=== PATIENT | female | born 1950 | race Caucasian/White ===

== ENCOUNTER → 2017-06-26 | Outpatient (CLI) | payer MEDICARE, OTHER ==
[~2017-06-26] MED LIST: ALBUAER3 IN; AMLO5TAB2 PO; ASP81EC PO; ATOR20TA50 PO; FEXO-38 PO; FLUT1INH6 IN; FURO20TA PO; LEVO-28 PO; LEVO500T21 PO; MONT10TA34 PO; POTA10IN PO; PRE1T PO; SACC250C PO; UMEC1INH IN
[2017-06-26 08:58] LABS: CONDITION Y; DEFINITIVE SEE PRINTOUT; Hematocrit 38.2 % (36.0-46.0); Hemoglobin 12.9 g/dL (12.2-16.2); Mean Corpuscular Hemoglobin 29.9 pg (28.0-32.0); Mean Corpuscular Hgb Conc. 33.6 g/dL (32.0-36.0); Mean Platelet Volume 7.7 fL (7.4-10.4); Platelet Count (auto) 462 10^3/uL (140-450); Red Cell Distribution Width 14.9 % (11.6-16.0); SUSPECT SEE PRINTOUT
[2017-06-26 09:03] LABS: Urine Bilirubin Negative (Negative); Urine Blood 1+ /uL (Negative); Urine Color Yellow (Yellow); Urine Glucose Normal (Normal); Urine Ketone Negative (Negative); Urine Mucus FEW (None Seen); Urine Nitrite Negative (Negative); Urine RBC 4 /hpf (0 - 4); Urine Squamous Epithelial Cell FEW /hpf (<5)
[2017-06-26 09:07] LABS: Metamyelocytes % 0; Myelocytes % 0; Promyelocytes % 0; Reactive Lymphocytes 0
[2017-06-26 09:38] LABS: BUN/Creatinine Ratio 23.3; Bilirubin, Total 0.7 mg/dL (0.2-1.0); Total Protein 7.6 g/dL (6.4-8.2)
[2017-06-26 14:43] LABS: Platelet Estimate Increased
== END | disposition home or self-care (01) ==
LOC: LAB 08:30
PROVIDERS: ATTEND Internal Medicine
DX: J44.9 Chronic obstructive pulmonary disease, unspecified (principal); J30.2 Other seasonal allergic rhinitis
CPT/HCPCS: 36415; 80053; 80061; 81001; 84439; 84443; 85007; 85027; 85652; 86141

== ENCOUNTER 2017-07-02 19:01 | Emergency (ER) | payer MEDICARE, OTHER ==
[~2017-07-02] VITALS: Ht 152.4 cm; Wt 68.5 kg
[2017-07-02 19:56] LABS: Basophils # (auto) 0 uL; Basophils % (auto) 0.1 % (0.0-2.0); Eosinophils # (auto) 3.7 uL; Hematocrit 36.9 % (36.0-46.0); Hemoglobin 12.5 g/dL (12.2-16.2); Lymphocytes # (auto) 1.6 uL; Lymphocytes % (auto) 7.8 % (10.0-50.0); Mean Corpuscular Hemoglobin 29.4 pg (28.0-32.0); Mean Corpuscular Hgb Conc. 33.9 g/dL (32.0-36.0); Mean Corpuscular Volume 86.8 fL (80.0-100.0); Monocytes # (auto) 0.3 uL; Monocytes % (auto) 1.7 % (0.0-12.0); Neutrophils # (auto) 14.3 uL; Neutrophils % (auto) 71.6 % (37.0-80.0); Platelet Count (auto) 559 10^3/uL (140-450); Red Cell Distribution Width 15.3 % (11.6-16.0); White Blood Cell 19.9 10^3/uL (4.4-10.8)
[2017-07-02 20:21] LABS: Albumin 2.9 g/dL (3.4-5.0); Anion Gap 15 (5-15); Aspartate Aminotransferase 34 U/L (15-37); BUN/Creatinine Ratio 20.8; Blood Urea Nitrogen 15 mg/dL (7-18); Calcium 8.5 mg/dL (8.5-10.1); Carbon Dioxide 19 mmol/L (21-32); Chloride 103 mmol/L (98-107); GFR African American 104 mL/min; GFR Non-African American 86 mL/min; Glucose 148 mg/dL (74-106); Magnesium 2.3 mg/dL (1.6-2.6); Potassium 3.4 mmol/L (3.5-5.1); Sodium 137 mmol/L (136-145)
[2017-07-02 20:24] LABS: Eosinophils % (auto) 18.8 % (0.0-7.0)
[2017-07-02 20:27] LABS: Alkaline Phosphatase 206 U/L (45-117); Bilirubin, Total 0.9 mg/dL (0.2-1.0); Total Protein 8.3 g/dL (6.4-8.2)
[2017-07-02 21:06] LABS: B-Type Natriuretic Peptide 44.4 pg/mL (0-100)
[2017-07-02 21:15] LABS: Temperature: 22.3 C (20.0-25.0)
[2017-07-02 21:25] LABS: Urine Bilirubin Negative (Negative); Urine Blood 1+ /uL (Negative); Urine Color Yellow (Yellow); Urine Glucose Normal (Normal); Urine Ketone 4+ (Negative); Urine Mucus FEW (None Seen); Urine Nitrite Negative (Negative); Urine RBC 4 /hpf (0 - 4); Urine Squamous Epithelial Cell FEW /hpf (<5); Urine Urobilinogen Normal (Negative); Urine pH 5.5 (5.0-8.0)
[2017-07-02 21:31] LABS: Lactic Acid w/Reflex 2.2 mmol/L (0.4-2.0)
[2017-07-02 22:07] LABS: REFLEX LACTIC ACID YES OR NO YES
[2017-07-02] MEDS ORDERED: SODIUM CHLORIDE 0.9% 1,000 ML IV ONE (22:15)
[2017-07-02] MEDS ORDERED: cefTRIAXone 1GM/50ML D5W 50 ML IV ONE (23:00)
[2017-07-03 01:00] VITALS: BP 143/71
[2017-07-06] MEDS ORDERED: LEVO-28 PO (16:09)
[2017-07-06] MEDS ORDERED: PRE1T PO (16:09)
[2017-07-06] MEDS ORDERED: AMLO5TAB2 PO (16:12)
[2017-07-06] MEDS ORDERED: FEXO-38 PO (16:12)
[2017-07-06] MEDS ORDERED: MONT10TA34 PO (16:12)
[2017-07-06] MEDS ORDERED: FURO20TA PO (16:12)
[2017-07-06] MEDS ORDERED: POTA10IN PO (16:12)
[2017-07-06] MEDS ORDERED: FLUT1INH6 IN (23:46)
[2017-07-06] MEDS ORDERED: ALBUAER3 IN (23:46)
[2017-07-06] MEDS ORDERED: UMEC1INH IN (23:46)
[2017-07-09] MEDS ORDERED: LEVO500T21 PO (15:07)
[2017-07-09] MEDS ORDERED: ASP81EC PO (15:07)
[2017-07-09] MEDS ORDERED: SACC250C PO (15:07)
[2017-07-09] MEDS ORDERED: ATOR20TA50 PO (15:07)
== END 2017-07-03 01:57 | disposition home or self-care (01) ==
LOC: ER 19:01
DX: J01.90 Acute sinusitis, unspecified (principal); D72.829 Elevated white blood cell count, unspecified; J44.9 Chronic obstructive pulmonary disease, unspecified; I10 Essential (primary) hypertension
CPT/HCPCS: 36415; 70450; 71020; 80053; 81001; 83605; 83735; 83880; 84484; 85025; 87040; 93005; 96361; 96365; 99285; J0696; J7030

== ENCOUNTER → 2017-07-02 | Outpatient (CLI) | payer MEDICARE, OTHER ==
[2017-07-02 13:18] LABS: CONDITION Y; DEFINITIVE SEE PRINTOUT; Hematocrit 39.9 % (36.0-46.0); Hemoglobin 13.2 g/dL (12.2-16.2); Mean Corpuscular Hemoglobin 29.6 pg (28.0-32.0); Mean Corpuscular Hgb Conc. 33.2 g/dL (32.0-36.0); Mean Corpuscular Volume 89.4 fL (80.0-100.0); Mean Platelet Volume 7.2 fL (7.4-10.4); Platelet Count (auto) 682 10^3/uL (140-450); Red Cell Distribution Width 15.6 % (11.6-16.0); SUSPECT SEE PRINTOUT; White Blood Cell 29.4 10^3/uL (4.4-10.8)
[2017-07-02 13:24] LABS: Metamyelocytes % 0; Myelocytes % 0; Promyelocytes % 0; Reactive Lymphocytes 0
[2017-07-02 13:45] LABS: Platelet Estimate Increased
[2017-07-02 14:40] LABS: Potassium 3.5 mmol/L (3.5-5.1)
== END | disposition home or self-care (01) ==
LOC: LAB 12:56
PROVIDERS: ATTEND Internal Medicine
DX: J32.9 Chronic sinusitis, unspecified (principal); I11.0 Hypertensive heart disease with heart failure; I50.9 Heart failure, unspecified
CPT/HCPCS: 36415; 84132; 85007; 85027; 86141

== ENCOUNTER → 2017-07-16 | Outpatient (CLI) | payer MEDICARE, OTHER ==
[2017-07-16 11:27] LABS: Hemoglobin 12.4 g/dL (12.2-16.2); Mean Corpuscular Hemoglobin 29.6 pg (28.0-32.0); Mean Corpuscular Hgb Conc. 33.5 g/dL (32.0-36.0); Mean Corpuscular Volume 88.2 fL (80.0-100.0); Mean Platelet Volume 7.3 fL (6.9-10.8); Platelet Count (auto) 578 10^3/uL (140-450); Red Cell Distribution Width 16.3 % (11.8-14.3); White Blood Cell 25.8 10^3/uL (4.4-10.8)
[2017-07-16 11:35] LABS: Metamyelocytes % 0; Myelocytes % 0; Promyelocytes % 0; Reactive Lymphocytes 0
[2017-07-16 12:53] LABS: Platelet Estimate Increased
== END | disposition home or self-care (01) ==
LOC: LAB 09:16
PROVIDERS: ATTEND Internal Medicine
DX: D72.829 Elevated white blood cell count, unspecified (principal)
CPT/HCPCS: 36415; 85007; 85027

== ENCOUNTER → 2017-08-26 | Outpatient (CLI) | payer MEDICARE, OTHER ==
[~2017-08-26] MED LIST changes: -LEVO500T21 PO
[2017-08-26 09:31] LABS: Basophils # (auto) 0 uL; Basophils % (auto) 0.1 % (0.0-2.0); Eosinophils # (auto) 0.7 uL; Eosinophils % (auto) 3.7 % (0.0-7.0); Hematocrit 32.9 % (36.0-46.0); Hemoglobin 10.7 g/dL (12.2-16.2); Lymphocytes # (auto) 1.7 uL; Lymphocytes % (auto) 9.5 % (10.0-50.0); Mean Corpuscular Hemoglobin 29.2 pg (28.0-32.0); Mean Corpuscular Hgb Conc. 32.5 g/dL (32.0-36.0); Mean Corpuscular Volume 89.7 fL (80.0-100.0); Mean Platelet Volume 7.6 fL (6.9-10.8); Monocytes # (auto) 0.8 uL; Monocytes % (auto) 4.3 % (0.0-12.0); Neutrophils % (auto) 82.4 % (37.0-80.0); Platelet Count (auto) 409 10^3/uL (140-450); Red Cell Distribution Width 18.6 % (11.8-14.3); White Blood Cell 18.1 10^3/uL (4.4-10.8)
[2017-08-26 10:00] LABS: Albumin 2.7 g/dL (3.4-5.0); Bilirubin, Total 0.4 mg/dL (0.2-1.0); Calcium 8.4 mg/dL (8.5-10.1); Potassium 3.4 mmol/L (3.5-5.1); Total Protein 6.6 g/dL (6.4-8.2)
== END | disposition home or self-care (01) ==
LOC: LAB 08:34
DX: I10 Essential (primary) hypertension (principal); M06.9 Rheumatoid arthritis, unspecified; D64.9 Anemia, unspecified; J44.9 Chronic obstructive pulmonary disease, unspecified
CPT/HCPCS: 36415; 80053; 85025; 85652; 86141; 86256

== ENCOUNTER → 2017-10-09 | Outpatient (CLI) | payer MEDICARE, OTHER ==
[2017-10-09 11:11] LABS: Basophils # (auto) 0.1 uL; Basophils % (auto) 0.4 % (0.0-2.0); Eosinophils # (auto) 1.5 uL; Eosinophils % (auto) 8.3 % (0.0-7.0); Hematocrit 33.1 % (36.0-46.0); Hemoglobin 10.7 g/dL (12.2-16.2); Lymphocytes # (auto) 1.8 uL; Lymphocytes % (auto) 10.1 % (10.0-50.0); Mean Corpuscular Hemoglobin 28.8 pg (28.0-32.0); Mean Corpuscular Hgb Conc. 32.5 g/dL (32.0-36.0); Mean Corpuscular Volume 88.7 fL (80.0-100.0); Mean Platelet Volume 7.2 fL (6.9-10.8); Monocytes # (auto) 0.8 uL; Monocytes % (auto) 4.4 % (0.0-12.0); Neutrophils # (auto) 13.9 uL; Neutrophils % (auto) 76.8 % (37.0-80.0); Nucleated Red Blood Cells % 0.2 %; Platelet Count (auto) 457 10^3/uL (140-450); Red Cell Distribution Width 17.6 % (11.8-14.3); White Blood Cell 18.1 10^3/uL (4.4-10.8)
[2017-10-09 12:05] LABS: Albumin 2.6 g/dL (3.4-5.0); Bilirubin, Total 0.7 mg/dL (0.2-1.0); Calcium 9.2 mg/dL (8.5-10.1); Potassium 3.9 mmol/L (3.5-5.1); Total Protein 6.7 g/dL (6.4-8.2)
== END | disposition home or self-care (01) ==
LOC: LAB 10:53
DX: I10 Essential (primary) hypertension (principal); M06.9 Rheumatoid arthritis, unspecified; I70.0 Atherosclerosis of aorta; E78.00 Pure hypercholesterolemia, unspecified; D64.9 Anemia, unspecified; Z79.899 Other long term (current) drug therapy
CPT/HCPCS: 36415; 80053; 85025; 85652; 86141

== ENCOUNTER → 2017-11-11 | Outpatient (CLI) | payer MEDICARE, OTHER ==
[2017-11-11 11:28] LABS: Basophils # (auto) 0 uL; Eosinophils # (auto) 0.3 uL; Hemoglobin 10.1 g/dL (12.2-16.2); Lymphocytes # (auto) 1.2 uL; Monocytes # (auto) 0.8 uL; Monocytes % (auto) 6.3 % (0.0-12.0)
[2017-11-11 11:31] LABS: Basophils % (auto) 0.2 % (0.0-2.0); Eosinophils % (auto) 2.2 % (0.0-7.0); Hematocrit 31.1 % (36.0-46.0); Lymphocytes % (auto) 9.6 % (10.0-50.0); Mean Corpuscular Hemoglobin 28.3 pg (28.0-32.0); Mean Corpuscular Hgb Conc. 32.7 g/dL (32.0-36.0); Mean Corpuscular Volume 86.6 fL (80.0-100.0); Neutrophils # (auto) 10.5 uL; Neutrophils % (auto) 81.7 % (37.0-80.0); Platelet Count (auto) 677 10^3/uL (140-450); Red Blood Cells 3.59 10^6/uL (4.0-5.20); Red Cell Distribution Width 16.5 % (11.8-14.3); White Blood Cell 12.9 10^3/uL (4.4-10.8)
[2017-11-11 11:47] LABS: Albumin 3.1 g/dL (3.4-5.0); BUN/Creatinine Ratio 18.3; Bilirubin, Total 0.3 mg/dL (0.2-1.0); CRP High Sensitivity 9.83 mg/dL (< 0.3); Magnesium 2.3 mg/dL (1.6-2.6); Potassium 4.1 mmol/L (3.5-5.1); Total Protein 7.3 g/dL (6.4-8.2)
== END | disposition home or self-care (01) ==
LOC: LAB 10:47
PROVIDERS: ATTEND Internal Medicine
DX: I10 Essential (primary) hypertension (principal); I77.6 Arteritis, unspecified; J44.9 Chronic obstructive pulmonary disease, unspecified; Z80.8 Family history of malignant neoplasm of other organs or systems; Z82.49 Family history of ischemic heart disease and other diseases of the circulatory system; Z79.899 Other long term (current) drug therapy
CPT/HCPCS: 36415; 80053; 83735; 83880; 85025; 85652; 86141

== ENCOUNTER → 2018-01-18 | Outpatient (CLI) | payer MEDICARE, OTHER ==
[2018-01-18 12:25] LABS: Basophils # (auto) 0 uL; Basophils % (auto) 0.1 % (0.0-2.0); Eosinophils # (auto) 0.3 uL; Eosinophils % (auto) 2.9 % (0.0-7.0); Hematocrit 36.7 % (36.0-46.0); Hemoglobin 11.6 g/dL (12.2-16.2); Lymphocytes # (auto) 0.8 uL; Lymphocytes % (auto) 6.6 % (10.0-50.0); Mean Corpuscular Hemoglobin 27.5 pg (28.0-32.0); Mean Corpuscular Hgb Conc. 31.6 g/dL (32.0-36.0); Monocytes # (auto) 0.4 uL; Monocytes % (auto) 3.8 % (0.0-12.0); Neutrophils % (auto) 86.6 % (37.0-80.0); Platelet Count (auto) 442 10^3/uL (140-450); Red Blood Cells 4.22 10^6/uL (4.0-5.20); White Blood Cell 11.6 10^3/uL (4.4-10.8)
[2018-01-18 13:13] LABS: Albumin 3.4 g/dL (3.4-5.0); BUN/Creatinine Ratio 12.5; Bilirubin, Total 0.4 mg/dL (0.2-1.0); CRP High Sensitivity 6.64 mg/dL (< 0.3); Calcium 9.2 mg/dL (8.5-10.1); Potassium 4.1 mmol/L (3.5-5.1); Total Protein 7.7 g/dL (6.4-8.2)
== END | disposition home or self-care (01) ==
LOC: LAB 11:51
PROVIDERS: ATTEND Internal Medicine Rheumatology
DX: M31.30 Wegener's granulomatosis without renal involvement (principal); I10 Essential (primary) hypertension; J45.909 Unspecified asthma, uncomplicated
CPT/HCPCS: 36415; 80053; 85025; 85652; 86141

== ENCOUNTER → 2018-01-28 | Outpatient (CLI) | payer MEDICARE, OTHER ==
[2018-01-28 13:35] LABS: Folate (Folic Acid) 24.8 ng/mL (5.38-24)
== END | disposition home or self-care (01) ==
LOC: LAB 11:43
PROVIDERS: ATTEND Psychiatry & Neurology Neurology
DX: G62.9 Polyneuropathy, unspecified (principal); I10 Essential (primary) hypertension; J44.9 Chronic obstructive pulmonary disease, unspecified; M06.9 Rheumatoid arthritis, unspecified; Z79.899 Other long term (current) drug therapy; Z87.891 Personal history of nicotine dependence
CPT/HCPCS: 36415; 82607; 82746; 85652

== ENCOUNTER → 2018-02-01 | Outpatient (CLI) | payer MEDICARE, OTHER | END | disposition home or self-care (01) | LOC: LAB 07:50 | PROVIDERS: ATTEND Psychiatry & Neurology Neurology | DX: G62.9 Polyneuropathy, unspecified (principal); J44.9 Chronic obstructive pulmonary disease, unspecified; I12.9 Hypertensive chronic kidney disease with stage 1 through stage 4 chronic kidney disease, or unspecified chronic kidney disease; N18.2 Chronic kidney disease, stage 2 (mild); M06.9 Rheumatoid arthritis, unspecified; E78.00 Pure hypercholesterolemia, unspecified; Z79.82 Long term (current) use of aspirin; Z87.891 Personal history of nicotine dependence | CPT/HCPCS: 36415; 82951 ==

== ENCOUNTER → 2018-02-16 | Outpatient (CLI) | payer MEDICARE, OTHER | END | disposition home or self-care (01) | LOC: LAB 11:11 | PROVIDERS: ATTEND Internal Medicine Gastroenterology | DX: R10.9 Unspecified abdominal pain (principal); I12.9 Hypertensive chronic kidney disease with stage 1 through stage 4 chronic kidney disease, or unspecified chronic kidney disease; N18.2 Chronic kidney disease, stage 2 (mild); E78.00 Pure hypercholesterolemia, unspecified; J45.909 Unspecified asthma, uncomplicated; Z79.899 Other long term (current) drug therapy | CPT/HCPCS: 82270 ==

== ENCOUNTER → 2018-03-29 | Outpatient (CLI) | payer MEDICARE, OTHER ==
[2018-03-29 11:51] LABS: Basophils # (auto) 0 uL; Basophils % (auto) 0.1 % (0.0-2.0); Eosinophils # (auto) 0.3 uL; Eosinophils % (auto) 2.5 % (0.0-7.0); Hematocrit 37.9 % (36.0-46.0); Hemoglobin 12.2 g/dL (12.2-16.2); Lymphocytes # (auto) 1.6 uL; Mean Corpuscular Hemoglobin 28.4 pg (28.0-32.0); Mean Corpuscular Hgb Conc. 32.3 g/dL (32.0-36.0); Monocytes # (auto) 0.7 uL; Monocytes % (auto) 5.7 % (0.0-12.0); Neutrophils # (auto) 9.1 uL; Neutrophils % (auto) 77.7 % (37.0-80.0); Platelet Count (auto) 384 10^3/uL (140-450); Red Blood Cells 4.31 10^6/uL (4.0-5.20); Red Cell Distribution Width 17.1 % (11.8-14.3); White Blood Cell 11.7 10^3/uL (4.4-10.8)
[2018-03-29 12:56] LABS: BUN/Creatinine Ratio 18.4; Bilirubin, Total 0.4 mg/dL (0.2-1.0); Calcium 9.8 mg/dL (8.5-10.1); Potassium 4.7 mmol/L (3.5-5.1); Total Protein 7.8 g/dL (6.4-8.2)
[2018-03-29 13:11] LABS: % Iron Saturation 26.1 % (15-50)
== END | disposition home or self-care (01) ==
LOC: LAB 09:49
PROVIDERS: ATTEND Internal Medicine
DX: D47.3 Essential (hemorrhagic) thrombocythemia (principal); I12.9 Hypertensive chronic kidney disease with stage 1 through stage 4 chronic kidney disease, or unspecified chronic kidney disease; N18.2 Chronic kidney disease, stage 2 (mild); J44.9 Chronic obstructive pulmonary disease, unspecified; M06.9 Rheumatoid arthritis, unspecified; E78.00 Pure hypercholesterolemia, unspecified; Z87.891 Personal history of nicotine dependence
CPT/HCPCS: 36415; 80053; 82607; 83540; 83550; 83615; 85025

== ENCOUNTER → 2018-06-15 | Outpatient (CLI) | payer MEDICARE, OTHER ==
[2018-06-15 11:25] LABS: Basophils # (auto) 0 uL; Basophils % (auto) 0.1 % (0.0-2.0); Eosinophils # (auto) 0.4 uL; Eosinophils % (auto) 3.7 % (0.0-7.0); Hematocrit 38.7 % (36.0-46.0); Hemoglobin 12.7 g/dL (12.2-16.2); Lymphocytes # (auto) 1.4 uL; Lymphocytes % (auto) 12.3 % (10.0-50.0); Mean Corpuscular Hemoglobin 30.2 pg (28.0-32.0); Mean Corpuscular Hgb Conc. 32.9 g/dL (32.0-36.0); Mean Corpuscular Volume 91.8 fL (80.0-100.0); Monocytes # (auto) 0.7 uL; Monocytes % (auto) 5.9 % (0.0-12.0); Neutrophils # (auto) 9.1 uL; Platelet Count (auto) 385 10^3/uL (140-450); Red Blood Cells 4.21 10^6/uL (4.0-5.20); Red Cell Distribution Width 15.4 % (11.8-14.3); White Blood Cell 11.7 10^3/uL (4.4-10.8)
[2018-06-15 16:39] LABS: % Iron Saturation 31.1 % (15-50)
== END | disposition home or self-care (01) ==
LOC: LAB 11:04
PROVIDERS: ATTEND Internal Medicine
DX: D47.3 Essential (hemorrhagic) thrombocythemia (principal); J44.9 Chronic obstructive pulmonary disease, unspecified
CPT/HCPCS: 36415; 83540; 83550; 85025

== ENCOUNTER → 2018-06-24 | Outpatient (CLI) | payer MEDICARE, OTHER ==
[2018-06-24 09:50] LABS: Basophils # (auto) 0 uL; Basophils % (auto) 0.2 % (0.0-2.0); Eosinophils # (auto) 0.6 uL; Hematocrit 38.2 % (36.0-46.0); Hemoglobin 12.5 g/dL (12.2-16.2); Lymphocytes # (auto) 1.6 uL; Lymphocytes % (auto) 14.9 % (10.0-50.0); Mean Corpuscular Hemoglobin 30.1 pg (28.0-32.0); Mean Corpuscular Hgb Conc. 32.7 g/dL (32.0-36.0); Mean Corpuscular Volume 92.1 fL (80.0-100.0); Monocytes # (auto) 0.7 uL; Monocytes % (auto) 6.3 % (0.0-12.0); Neutrophils # (auto) 7.6 uL; Neutrophils % (auto) 72.6 % (37.0-80.0); Platelet Count (auto) 373 10^3/uL (140-450); Red Blood Cells 4.15 10^6/uL (4.0-5.20); Red Cell Distribution Width 15.5 % (11.8-14.3); White Blood Cell 10.5 10^3/uL (4.4-10.8)
[2018-06-24 10:14] LABS: INR 0.93 (0.9-1.15); Partial Thromboplastin Time 25.2 sec (23.78-33.04)
[2018-06-24 10:37] LABS: BUN/Creatinine Ratio 13.2; Bilirubin, Total 0.6 mg/dL (0.2-1.0); CRP High Sensitivity 0.31 mg/dL (< 0.3); Calcium 9.3 mg/dL (8.5-10.1); Potassium 4.3 mmol/L (3.5-5.1); Total Protein 7.8 g/dL (6.4-8.2)
== END | disposition home or self-care (01) ==
LOC: LAB 09:02
PROVIDERS: ATTEND Internal Medicine
DX: Z01.818 Encounter for other preprocedural examination (principal); I13.0 Hypertensive heart and chronic kidney disease with heart failure and stage 1 through stage 4 chronic kidney disease, or unspecified chronic kidney disease; N18.2 Chronic kidney disease, stage 2 (mild); I50.32 Chronic diastolic (congestive) heart failure; J45.909 Unspecified asthma, uncomplicated; L95.9 Vasculitis limited to the skin, unspecified; D50.8 Other iron deficiency anemias; E78.00 Pure hypercholesterolemia, unspecified; E78.5 Hyperlipidemia, unspecified; Z79.52 Long term (current) use of systemic steroids; Z87.891 Personal history of nicotine dependence; Z79.82 Long term (current) use of aspirin; Z79.899 Other long term (current) drug therapy
CPT/HCPCS: 36415; 80053; 80061; 83036; 84439; 84443; 85025; 85610; 85652; 85730; 86141

== ENCOUNTER → 2018-12-06 | Outpatient (CLI) | payer MEDICARE, OTHER ==
[~2018-12-06] MED LIST changes: +AMLO5TAB13 PO; -AMLO5TAB2 PO
== END | disposition home or self-care (01) ==
LOC: LAB 13:09
PROVIDERS: ATTEND Internal Medicine
DX: J45.909 Unspecified asthma, uncomplicated (principal)
CPT/HCPCS: 87070; 87205

== ENCOUNTER → 2018-12-10 | Outpatient (CLI) | payer MEDICARE, OTHER ==
[2018-12-10 15:39] LABS: Basophils # (auto) 0 uL; Basophils % (auto) 0.1 % (0.0-2.0); Eosinophils # (auto) 0.4 uL; Eosinophils % (auto) 3.9 % (0.0-7.0); Hematocrit 38.8 % (36.0-46.0); Hemoglobin 13.1 g/dL (12.2-16.2); Lymphocytes # (auto) 2.5 uL; Lymphocytes % (auto) 23.2 % (10.0-50.0); Mean Corpuscular Hemoglobin 30.8 pg (28.0-32.0); Mean Corpuscular Hgb Conc. 33.7 g/dL (32.0-36.0); Mean Corpuscular Volume 91.4 fL (80.0-100.0); Monocytes # (auto) 1.3 uL; Monocytes % (auto) 12.1 % (0.0-12.0); Neutrophils # (auto) 6.6 uL; Neutrophils % (auto) 60.7 % (37.0-80.0); Nucleated Red Blood Cells % 0.1 %; Platelet Count (auto) 418 10^3/uL (140-450); Red Blood Cells 4.24 10^6/uL (4.0-5.20); Red Cell Distribution Width 14.5 % (11.8-14.3); White Blood Cell 10.8 10^3/uL (4.4-10.8)
[2018-12-10 16:06] LABS: Albumin 3.8 g/dL (3.4-5.0); BUN/Creatinine Ratio 18.4; Bilirubin, Total 0.4 mg/dL (0.2-1.0); Calcium 9.7 mg/dL (8.5-10.1); Total Protein 8.3 g/dL (6.4-8.2)
[2018-12-10 19:15] LABS: Potassium 3.8 mmol/L (3.5-5.1)
== END | disposition home or self-care (01) ==
LOC: LAB 15:05
PROVIDERS: ATTEND Internal Medicine
DX: D47.3 Essential (hemorrhagic) thrombocythemia (principal)
CPT/HCPCS: 36415; 80053; 83615; 85025

== ENCOUNTER → 2019-03-31 | Outpatient (CLI) | payer MEDICARE, OTHER ==
[2019-03-31 13:21] LABS: Basophils # (auto) 0 uL; Eosinophils # (auto) 0.1 uL; Eosinophils % (auto) 0.5 % (0.0-7.0); Hematocrit 35.1 % (36.0-46.0); Hemoglobin 11.6 g/dL (12.2-16.2); Lymphocytes # (auto) 1.9 uL; Lymphocytes % (auto) 13.1 % (10.0-50.0); Mean Corpuscular Hemoglobin 30.9 pg (28.0-32.0); Mean Corpuscular Hgb Conc. 33.1 g/dL (32.0-36.0); Mean Corpuscular Volume 93.3 fL (80.0-100.0); Monocytes # (auto) 1.2 uL; Monocytes % (auto) 8.3 % (0.0-12.0); Neutrophils # (auto) 11.4 uL; Neutrophils % (auto) 78.1 % (37.0-80.0); Platelet Count (auto) 326 10^3/uL (140-450); Red Blood Cells 3.76 10^6/uL (4.0-5.20); Red Cell Distribution Width 15.1 % (11.8-14.3); White Blood Cell 14.6 10^3/uL (4.4-10.8)
[2019-03-31 13:22] LABS: Urine Blood Negative /uL (Negative); Urine Specific Gravity 1.008 (1.001-1.035)
[2019-03-31 13:57] LABS: Potassium 3.4 mmol/L (3.5-5.1)
[2019-03-31 14:00] LABS: Albumin 3.1 g/dL (3.4-5.0); BUN/Creatinine Ratio 25.9; Bilirubin, Total 0.4 mg/dL (0.2-1.0); CRP High Sensitivity 0.04 mg/dL (< 0.3); Calcium 8.3 mg/dL (8.5-10.1); Total Protein 6.6 g/dL (6.4-8.2)
[2019-03-31 14:10] LABS: Hepatitis B Surface Antibody Negative
[2019-03-31 16:30] LABS: Hepatitis B Core Total AB Negative; Hepatitis C Antibody Negative (Negative)
[2019-04-01 08:06] LABS: Immunoglobulin G, Serum 844 mg/dL (700-1600)
== END | disposition home or self-care (01) ==
LOC: LAB 12:34
PROVIDERS: ATTEND Internal Medicine Rheumatology
DX: I77.6 Arteritis, unspecified (principal); R94.5 Abnormal results of liver function studies; Z11.1 Encounter for screening for respiratory tuberculosis; I10 Essential (primary) hypertension
CPT/HCPCS: 36415; 80053; 81003; 82784; 85025; 85652; 86141; 86256; 86704; 86706; 86803

== ENCOUNTER → 2019-07-07 | Outpatient (CLI) | payer MEDICARE, OTHER ==
[~2019-07-07] MED LIST changes: -AMLO5TAB13 PO; +AMLO5TAB15 PO; +FURO1TAB33 PO; -FURO20TA PO
[2019-07-07 09:39] LABS: Basophils # (auto) 0 uL; Basophils % (auto) 0.2 % (0.0-2.0); Eosinophils # (auto) 0.2 uL; Eosinophils % (auto) 2.2 % (0.0-7.0); Hematocrit 37.7 % (36.0-46.0); Hemoglobin 12.6 g/dL (12.2-16.2); Lymphocytes # (auto) 1.1 uL; Lymphocytes % (auto) 10.8 % (10.0-50.0); Mean Corpuscular Hemoglobin 31.7 pg (28.0-32.0); Mean Corpuscular Hgb Conc. 33.5 g/dL (32.0-36.0); Mean Corpuscular Volume 94.6 fL (80.0-100.0); Monocytes # (auto) 0.6 uL; Monocytes % (auto) 6.5 % (0.0-12.0); Neutrophils # (auto) 7.9 uL; Neutrophils % (auto) 80.3 % (37.0-80.0); Platelet Count (auto) 364 10^3/uL (140-450); Red Blood Cells 3.98 10^6/uL (4.0-5.20); Red Cell Distribution Width 15.3 % (11.8-14.3); White Blood Cell 9.9 10^3/uL (4.4-10.8)
[2019-07-07 10:00] LABS: Albumin 3.7 g/dL (3.4-5.0); BUN/Creatinine Ratio 17.9; Calcium 9.5 mg/dL (8.5-10.1); Potassium 4.6 mmol/L (3.5-5.1)
[2019-07-07 10:03] LABS: Bilirubin, Total 0.5 mg/dL (0.2-1.0); Total Protein 7.4 g/dL (6.4-8.2)
== END | disposition home or self-care (01) ==
LOC: LAB 09:25
PROVIDERS: ATTEND Internal Medicine Rheumatology
DX: I77.6 Arteritis, unspecified (principal); M05.79 Rheumatoid arthritis with rheumatoid factor of multiple sites without organ or systems involvement
CPT/HCPCS: 36415; 80053; 85025

== ENCOUNTER → 2019-10-05 | Outpatient (CLI) | payer MEDICARE, OTHER ==
[2019-10-05 10:33] LABS: Basophils # (auto) 0 uL; Basophils % (auto) 0.1 % (0.0-2.0); Eosinophils # (auto) 0.4 uL; Hematocrit 36.8 % (36.0-46.0); Hemoglobin 12.3 g/dL (12.2-16.2); Lymphocytes # (auto) 1.6 uL; Mean Corpuscular Hemoglobin 31.4 pg (28.0-32.0); Mean Corpuscular Hgb Conc. 33.4 g/dL (32.0-36.0); Mean Corpuscular Volume 93.9 fL (80.0-100.0); Monocytes % (auto) 8.1 % (0.0-12.0); Neutrophils # (auto) 9.5 uL; Neutrophils % (auto) 75.8 % (37.0-80.0); Platelet Count (auto) 374 10^3/uL (140-450); Red Blood Cells 3.92 10^6/uL (4.0-5.20); Red Cell Distribution Width 14.9 % (11.8-14.3); White Blood Cell 12.5 10^3/uL (4.4-10.8)
[2019-10-05 10:42] LABS: Urine Bacteria NONE SEEN /hpf (None Seen); Urine Blood Negative /uL (Negative); Urine Specific Gravity 1.008 (1.001-1.035); Urine WBC 10 /hpf (0 - 5)
[2019-10-05 10:48] LABS: Magnesium 2.2 mg/dL (1.6-2.6); Potassium 4.1 mmol/L (3.5-5.1)
[2019-10-05 10:55] LABS: Albumin 3.7 g/dL (3.4-5.0); BUN/Creatinine Ratio 25.9; Bilirubin, Total 0.4 mg/dL (0.2-1.0); Calcium 9.2 mg/dL (8.5-10.1); Total Protein 7.4 g/dL (6.4-8.2)
== END | disposition home or self-care (01) ==
LOC: LAB 10:04
PROVIDERS: ATTEND Internal Medicine
DX: Z12.11 Encounter for screening for malignant neoplasm of colon (principal); I10 Essential (primary) hypertension; M31.30 Wegener's granulomatosis without renal involvement; E83.42 Hypomagnesemia
CPT/HCPCS: 36415; 80053; 80061; 81001; 82043; 82270; 83735; 84443; 85025

== ENCOUNTER → 2020-01-05 | Outpatient (CLI) | payer MEDICARE, OTHER ==
[~2020-01-05] MED LIST changes: -ASP81EC PO; +ASPI-394 PO
[2020-01-05 11:06] LABS: Basophils # (auto) 0 10 ^3/uL (0-0.2); Basophils % (auto) 0.1 % (0.0-2.0); Eosinophils # (auto) 0.4 10 ^3/uL (0-0.8); Eosinophils % (auto) 3.3 % (0.0-7.0); Lymphocytes # (auto) 1.2 10 ^3/uL (0.4-5.4); Lymphocytes % (auto) 8.9 % (10.0-50.0); Mean Corpuscular Hemoglobin 30.7 pg (28.0-32.0); Mean Corpuscular Hgb Conc. 33.3 g/dL (32.0-36.0); Mean Corpuscular Volume 92.3 fL (80.0-100.0); Monocytes % (auto) 7.5 % (0.0-12.0); Neutrophils # (auto) 10.4 10 ^3/uL (1.6-8.6); Neutrophils % (auto) 80.2 % (37.0-80.0); Nucleated Red Blood Cells % 0.1 %; Platelet Count (auto) 375 10^3/uL (140-450); Red Cell Distribution Width 14.9 % (11.8-14.3)
[2020-01-05 11:19] LABS: Albumin 3.7 g/dL (3.4-5.0); Calcium 9.3 mg/dL (8.5-10.1); Potassium 4.1 mmol/L (3.5-5.1)
[2020-01-05 11:28] LABS: BUN/Creatinine Ratio 17.1; Bilirubin, Total 0.4 mg/dL (0.2-1.0); CRP High Sensitivity 1.78 mg/dL (< 0.3); Total Protein 7.4 g/dL (6.4-8.2)
== END | disposition home or self-care (01) ==
LOC: LAB 10:36
PROVIDERS: ATTEND Internal Medicine Rheumatology
DX: M31.30 Wegener's granulomatosis without renal involvement (principal)
CPT/HCPCS: 36415; 80053; 82784; 85025; 86141; 87086

== ENCOUNTER → 2021-01-11 | Outpatient (CLI) | payer MEDICARE, OTHER ==
[~2021-01-11] MED LIST changes: +AMLO-489 PO; -AMLO5TAB15 PO
[2021-01-11 12:15] LABS: Basophils # (auto) 0 10 ^3/uL (0-0.2); Basophils % (auto) 0.3 % (0.0-2.0); Eosinophils # (auto) 0.3 10 ^3/uL (0-0.8); Eosinophils % (auto) 2.2 % (0.0-7.0); Hematocrit 33.4 % (36.0-46.0); Hemoglobin 11.4 g/dL (12.2-16.2); Lymphocytes # (auto) 1.5 10 ^3/uL (0.4-5.4); Lymphocytes % (auto) 12.6 % (10.0-50.0); Mean Corpuscular Hemoglobin 31.9 pg (28.0-32.0); Mean Corpuscular Hgb Conc. 34.1 g/dL (32.0-36.0); Mean Corpuscular Volume 93.5 fL (80.0-100.0); Monocytes # (auto) 0.6 10 ^3/uL (0-1.3); Monocytes % (auto) 5.1 % (0.0-12.0); Neutrophils # (auto) 9.6 10 ^3/uL (1.6-8.6); Neutrophils % (auto) 79.8 % (37.0-80.0); Platelet Count (auto) 383 10^3/uL (140-450); Red Blood Cells 3.57 10^6/uL (4.0-5.20); Red Cell Distribution Width 15.4 % (11.8-14.3); White Blood Cell 12.1 10^3/uL (4.4-10.8)
[2021-01-11 12:34] LABS: Urine Bacteria NONE SEEN /hpf (None Seen); Urine Blood Negative /uL (Negative); Urine Specific Gravity 1.024 (1.001-1.035); Urine WBC 5 /hpf (0 - 5)
[2021-01-11 15:43] LABS: Albumin 3.7 g/dL (3.4-5.0); Calcium 9.4 mg/dL (8.5-10.1); Potassium 4.2 mmol/L (3.5-5.1)
[2021-01-11 15:50] LABS: BUN/Creatinine Ratio 15.4; Bilirubin, Total 0.6 mg/dL (0.2-1.0); Total Protein 7.6 g/dL (6.4-8.2)
== END | disposition home or self-care (01) ==
LOC: LAB 11:33
PROVIDERS: ATTEND Internal Medicine
DX: M81.0 Age-related osteoporosis without current pathological fracture (principal); I10 Essential (primary) hypertension
CPT/HCPCS: 36415; 80053; 80061; 81001; 82306; 83970; 84439; 84443; 85025; 85652

== ENCOUNTER → 2021-01-23 | Outpatient (CLI) | payer MEDICARE, OTHER | END | disposition home or self-care (01) | LOC: LAB 13:03 | PROVIDERS: ATTEND Internal Medicine | DX: Z12.11 Encounter for screening for malignant neoplasm of colon (principal); D64.9 Anemia, unspecified | CPT/HCPCS: 82270 ==

== ENCOUNTER → 2021-05-16 | Outpatient (CLI) | payer MEDICARE, OTHER ==
[~2021-05-16] MED LIST changes: -MONT10TA34 PO; +MONT10TA42 PO
== END | disposition home or self-care (01) ==
LOC: Rad HDHVI 13:56
PROVIDERS: ATTEND Internal Medicine Cardiovascular Disease
DX: I13.0 Hypertensive heart and chronic kidney disease with heart failure and stage 1 through stage 4 chronic kidney disease, or unspecified chronic kidney disease (principal); N18.9 Chronic kidney disease, unspecified; I50.9 Heart failure, unspecified
CPT/HCPCS: 93306

== ENCOUNTER → 2021-05-21 | Outpatient (CLI) | payer MEDICARE, OTHER ==
[~2021-05-21] VITALS: Ht 152.4 cm; Wt 73.0 kg
[~2021-05-21] MED LIST changes: +ADENOSINE 61 MG in GIVE UN-DILUTED 0 ML IV ONE; +ADENOSINE 90 MG/30 ML INJ IV ONE
== END | disposition home or self-care (01) ==
LOC: Rad HDHVI 09:05
PROVIDERS: ATTEND Internal Medicine Cardiovascular Disease
DX: I11.0 Hypertensive heart disease with heart failure (principal); E78.5 Hyperlipidemia, unspecified; J44.9 Chronic obstructive pulmonary disease, unspecified; I50.9 Heart failure, unspecified; Z82.49 Family history of ischemic heart disease and other diseases of the circulatory system
CPT/HCPCS: 78452; 93005; 96374; 96375; A9500; J0153

== ENCOUNTER 2021-06-14 06:37 | Day surgery (SDC) | payer MEDICARE, OTHER ==
[~2021-06-14] VITALS: Ht 152.4 cm; Wt 71.2 kg
[~2021-06-14 06:37] MED LIST changes: -ADENOSINE 61 MG in GIVE UN-DILUTED 0 ML IV ONE; -ADENOSINE 90 MG/30 ML INJ IV ONE; -ALBUAER3 IN; -AMLO-489 PO; -ASPI-394 PO; -FEXO-38 PO; -FLUT1INH6 IN; +GABA100C9 PO; -LEVO-28 PO; +METO-289 PO; +PANT40TA2 PO; -SACC250C PO; -UMEC1INH IN
[2021-06-14] MEDS ORDERED: MIDAZOLAM HCL 2MG/2ML 2ml VIAL (1mg/ml) IV ONE ×2 (08:00→10:15)
[2021-06-14] MEDS ORDERED: MIDAZOLAM HCL 2MG/2ML 2ml VIAL (1mg/ml) ONE ×2 (08:22→09:27)
[2021-06-14 10:20] VITALS: BP 124/63
== END 2021-06-14 11:15 | disposition home or self-care (01) ==
LOC: CATH 06:37
PROVIDERS: ATTEND Internal Medicine Cardiovascular Disease
DX: Z13.6 Encounter for screening for cardiovascular disorders (principal); J43.9 Emphysema, unspecified; I10 Essential (primary) hypertension; E78.5 Hyperlipidemia, unspecified; I25.10 Atherosclerotic heart disease of native coronary artery without angina pectoris; Z88.8 Allergy status to other drugs, medicaments and biological substances; Z88.1 Allergy status to other antibiotic agents; Z68.30 Body mass index [BMI] 30.0-30.9, adult; Z20.822 Contact with and (suspected) exposure to COVID-19
CPT/HCPCS: 93312; J2250; J7040; U0003; 99152

== ENCOUNTER 2021-12-30 06:12 | Inpatient (IN) | payer MEDICARE, OTHER ==
[2021-12-26 11:12] LABS: Basophils # (auto) 0 10 ^3/uL (0-0.2); Basophils % (auto) 0.4 % (0.0-2.0); Eosinophils # (auto) 0.4 10 ^3/uL (0-0.8); Eosinophils % (auto) 4.8 % (0.0-7.0); Hematocrit 35.6 % (36.0-46.0); Lymphocytes # (auto) 1.1 10 ^3/uL (0.4-5.4); Lymphocytes % (auto) 13.4 % (10.0-50.0); Mean Corpuscular Hemoglobin 32.2 pg (28.0-32.0); Mean Corpuscular Hgb Conc. 33.8 g/dL (32.0-36.0); Mean Corpuscular Volume 95.3 fL (80.0-100.0); Monocytes # (auto) 0.6 10 ^3/uL (0-1.3); Monocytes % (auto) 7.2 % (0.0-12.0); Neutrophils % (auto) 74.2 % (37.0-80.0); Red Blood Cells 3.74 10^6/uL (4.0-5.20); White Blood Cell 8.1 10^3/uL (4.4-10.8)
[2021-12-26 11:21] LABS: Albumin 3.9 g/dL (3.4-5.0); BUN/Creatinine Ratio 15.2; Calcium 10.2 mg/dL (8.5-10.1)
[2021-12-26 11:22] LABS: INR 1.02 (0.9-1.15); Partial Thromboplastin Time 25.7 sec (23.6-33.0)
[2021-12-26 11:24] LABS: Bilirubin, Total 0.4 mg/dL (0.2-1.0); Total Protein 7.3 g/dL (6.4-8.2)
[2021-12-27 14:28] LABS: Urine Bacteria FEW /hpf (None Seen); Urine Blood Negative /uL (Negative); Urine WBC 6 /hpf (0 - 5)
[2021-12-30] VITALS (12 sets, daily range): BP systolic 85–136; BP diastolic 44–73
[~2021-12-30] VITALS: Ht 152.4 cm; Wt 72.7 kg
[~2021-12-30 06:12] MED LIST changes: +ASPI1TAB20 PO; +MONT-8 PO; -MONT10TA42 PO
[2021-12-30] MEDS ORDERED: TETRACAINE 1% INJ 2 ML VIAL IJ ONE (06:49)
[2021-12-30] MEDS ORDERED: SUCCINYLCHOLINE CHLORIDE 20 MG/ML 10ML VIAL IV ONE (06:49)
[2021-12-30] MEDS ORDERED: ROCURONIUM 10MG/ML 10ML VIAL IV ONE (06:49)
[2021-12-30] MEDS ORDERED: ceFAZolin 1GM/50ML 100 ML IV ONE (06:50)
[2021-12-30] MEDS ORDERED: CELECOXIB 100 MG CAP ONE (06:50)
[2021-12-30] MEDS ORDERED: ACETAMINOPHEN IV 100 ML IV ONE (06:51)
[2021-12-30] MEDS ORDERED: PROPOFOL 10 MG/ML 20 ML IV ONE (06:53)
[2021-12-30] MEDS ORDERED: MIDAZOLAM HCL 2MG/2ML 2ml VIAL (1mg/ml) ONE ×2 (06:53→07:46)
[2021-12-30] MEDS ORDERED: fentaNYL CITRATE 100 MCG/2 ML VL ONE (06:53)
[2021-12-30] MEDS ORDERED: SODIUM CHLORIDE LOCK 10 ML ONE (06:53)
[2021-12-30] MEDS ORDERED: ONDANSETRON HCL 4 MG/2 ML VIAL ONE (06:53)
[2021-12-30] MEDS ORDERED: EPINEPHrine HCL 1 MG/1 ML AMP ONE (06:53)
[2021-12-30] MEDS ORDERED: BUPIVACAINE/DEXTROSE MPF 0.75% 2 ML AMP IT ONE (06:53)
[2021-12-30] MEDS ORDERED: MORPHINE SULF PF 2 MG/2 ML SYRG ONE ×2 (06:53→07:01)
[2021-12-30] MEDS ORDERED: PREGABALIN CAPSULE 75 MG CAP PO ONE (07:00)
[2021-12-30] MEDS ORDERED: ACETAMINOPHEN IV 1000 MG/100ML (10MG/ML) IV ONE (07:00)
[2021-12-30] MEDS ORDERED: CELECOXIB 100 MG CAP PO ONE (07:00)
[2021-12-30] MEDS ORDERED: TRANEXAMIC ACID 20 ML ONE (07:08)
[2021-12-30] MEDS: BUPIVACAINE W/ EPINEPH 0.25% INJ 50ML MDV ONE ×2 (07:08→08:03)
[2021-12-30] MEDS: KETOROLAC TROMETH 30 MG/ML 1ML VIAL ONE ×2 (07:09→08:03)
[2021-12-30] MEDS: VANCOMYCIN HCL 1000 MG VL ONE ×2 (07:09→08:03)
[2021-12-30] MEDS ORDERED: METOCLOPRAMIDE HCL 5MG/ml INJ 2ml VIAL IV PRN (08:30)
[2021-12-30] MEDS ORDERED: NALOXONE HCL 0.4 MG/ML VIAL IV PRN (08:30)
[2021-12-30] MEDS ORDERED: diphenhdrAMINE HCL 50 MG/1 ML VL IV PRN (08:30)
[2021-12-30] MEDS ORDERED: HYDROmorphone HCL 2 MG/ML VL IV PRN (08:30)
[2021-12-30] MEDS ORDERED: MORPHINE SULFATE 4 MG/ML SYR/VIAL IV PRN (08:30)
[2021-12-30] MEDS: LACTATED RINGER'S 1,000 ML IV SCH ×2 (09:45→20:15)
[2021-12-30] MEDS ORDERED: ACETAMINOPHEN 325 MG TAB PO PRN (09:45)
[2021-12-30] MEDS ORDERED: ceFAZolin 1GM/50ML 50 ML IV SCH (09:45)
[2021-12-30] MEDS: MONTELUKAST SODIUM 10 MG TAB PO SCH (10:00)
[2021-12-30] MEDS: METOPROLOL SUCCINATE XL 50 MG TAB PO SCH (10:00)
[2021-12-30] MEDS: GABAPENTIN 100 MG CAP PO SCH ×2 (10:00→22:14)
[2021-12-30] MEDS: PANTOPRAZOLE 40 MG TAB PO SCH (10:00)
[2021-12-30] MEDS: FUROSEMIDE 20 MG TAB PO SCH (10:00)
[2021-12-30] MEDS ORDERED: DexAMETHasone SOD PHOS 4 MG/1ML SDV INJ ONE ×2 (10:59→11:02)
[2021-12-30] MEDS ORDERED: DexAMETHasone SOD PHOS 10MG/1ML VIAL INJ IV ONE (11:00)
[2021-12-30] MEDS: ceFAZolin 1GM/50ML 50 ML IV SCH ×2 (12:59→19:32)
[2021-12-30] MEDS: SODIUM CHLOR 0.9% PF (SALINE LOCK) 10ML VIAL/SYR IV SCH ×2 (14:00→22:14)
[2021-12-30] MEDS ORDERED: SODIUM CHLORIDE 0.9% 1,000 ML IV ONE (17:45)
[2021-12-30] MEDS: ATORVASTATIN 20 MG TAB PO SCH (22:14)
[2021-12-31] VITALS (18 sets, daily range): BP systolic 76–131; BP diastolic 43–83
[2021-12-31] MEDS: ceFAZolin 1GM/50ML 50 ML IV SCH (01:35)
[2021-12-31] MEDS: LACTATED RINGER'S 1,000 ML IV SCH ×2 (05:45→17:11)
[2021-12-31] MEDS: SODIUM CHLOR 0.9% PF (SALINE LOCK) 10ML VIAL/SYR IV SCH ×3 (06:16→21:13)
[2021-12-31 06:26] LABS: Hemoglobin 8.2 g/dL (12.2-16.2)
[2021-12-31 06:28] LABS: Hematocrit 23.6 % (36.0-46.0)
[2021-12-31 06:41] LABS: Potassium 4.2 mmol/L (3.5-5.1)
[2021-12-31 06:46] LABS: Albumin 2.7 g/dL (3.4-5.0); BUN/Creatinine Ratio 22.7; Calcium 7.9 mg/dL (8.5-10.1); Total Protein 5.1 g/dL (6.4-8.2)
[2021-12-31 06:48] LABS: Bilirubin, Total 0.2 mg/dL (0.2-1.0)
[2021-12-31] MEDS: MONTELUKAST SODIUM 10 MG TAB PO SCH (08:27)
[2021-12-31] MEDS: GABAPENTIN 100 MG CAP PO SCH ×2 (08:27→21:13)
[2021-12-31] MEDS: FUROSEMIDE 20 MG TAB PO SCH (08:27)
[2021-12-31] MEDS: PANTOPRAZOLE 40 MG TAB PO SCH (08:27)
[2021-12-31] MEDS: ENOXAPARIN SOD 40 MG/0.4 ML SYRINGE SC SCH (08:28)
[2021-12-31] MEDS: METOPROLOL SUCCINATE XL 50 MG TAB PO SCH (08:28)
[2021-12-31] MEDS ORDERED: predniSONE 1 MG TAB PO ONE (14:15)
[2021-12-31] MEDS ORDERED: DOCUSATE SOD 100 MG CAP PO PRN (16:15)
[2021-12-31] MEDS: HYDROcodone-ACET 5/325MG TAB PO PRN (18:35)
[2021-12-31] MEDS: ATORVASTATIN 20 MG TAB PO SCH (21:13)
[2021-12-31] MEDS: OXYCODONE W/ ACETAMINOPHEN 5/325MG TABLET PO PRN (21:29)
[2022-01-01] MEDS: LACTATED RINGER'S 1,000 ML IV SCH (01:45)
[2022-01-01 05:00] VITALS: BP 117/59
[2022-01-01] MEDS: SODIUM CHLOR 0.9% PF (SALINE LOCK) 10ML VIAL/SYR IV SCH ×3 (05:56→21:18)
[2022-01-01] MEDS: HYDROcodone-ACET 5/325MG TAB PO PRN (06:10)
[2022-01-01 06:25] LABS: Hematocrit 23.5 % (36.0-46.0)
[2022-01-01] MEDS: ENOXAPARIN SOD 40 MG/0.4 ML SYRINGE SC SCH (08:18)
[2022-01-01] MEDS: MONTELUKAST SODIUM 10 MG TAB PO SCH (08:19)
[2022-01-01] MEDS: METOPROLOL SUCCINATE XL 50 MG TAB PO SCH (08:19)
[2022-01-01] MEDS: GABAPENTIN 100 MG CAP PO SCH ×2 (08:20→21:16)
[2022-01-01] MEDS: OXYCODONE W/ ACETAMINOPHEN 5/325MG TABLET PO PRN (08:21)
[2022-01-01 08:56] VITALS: BP 136/62
[2022-01-01] MEDS ORDERED: predniSONE 1 MG TAB PO SCH (10:00)
[2022-01-01] MEDS: HYDROmorphone HCL 2 MG/ML VL IV PRN ×3 (12:24→21:18)
[2022-01-01 13:05] VITALS: BP 106/56
[2022-01-01 16:24] VITALS: BP 114/63
[2022-01-01] MEDS: ATORVASTATIN 20 MG TAB PO SCH (21:16)
[2022-01-01 22:00] VITALS: BP 106/56
[2022-01-02] MEDS: OXYCODONE W/ ACETAMINOPHEN 5/325MG TABLET PO PRN (03:12)
[2022-01-02 05:00] VITALS: BP 101/52
[2022-01-02] MEDS: SODIUM CHLOR 0.9% PF (SALINE LOCK) 10ML VIAL/SYR IV SCH (05:21)
[2022-01-02 06:29] LABS: Hematocrit 23.5 % (36.0-46.0)
[2022-01-02 09:00] VITALS: BP 109/56
[2022-01-02] MEDS: ENOXAPARIN SOD 40 MG/0.4 ML SYRINGE SC SCH (10:00)
[2022-01-02] MEDS: MONTELUKAST SODIUM 10 MG TAB PO SCH (10:28)
[2022-01-02] MEDS: GABAPENTIN 100 MG CAP PO SCH (10:28)
[2022-01-02] MEDS: METOPROLOL SUCCINATE XL 50 MG TAB PO SCH (10:30)
== END 2022-01-02 14:00 | disposition home health service (06) | DRG 470 ==
LOC: SUR 06:12 → TELE 10:10 → TELE-WESTW 11:59
PROVIDERS: ADMIT Orthopaedic Surgery Adult Reconstructive Orthopaedic Surgery; ATTEND Internal Medicine
PROC: 8E0YXBZ Computer Assisted Procedure of Lower Extremity (ICD-10-PCS; 2021-12-30)
PROC: 0SR906Z Replacement of Right Hip Joint with Oxidized Zirconium on Polyethylene Synthetic Substitute, Open Approach (ICD-10-PCS; principal; 2021-12-30 07:24)
DX: M16.11 Unilateral primary osteoarthritis, right hip (principal); R71.0 Precipitous drop in hematocrit; E66.9 Obesity, unspecified; I10 Essential (primary) hypertension; E78.5 Hyperlipidemia, unspecified; J44.9 Chronic obstructive pulmonary disease, unspecified; G62.9 Polyneuropathy, unspecified; Z20.822 Contact with and (suspected) exposure to COVID-19; Z88.1 Allergy status to other antibiotic agents; Z68.30 Body mass index [BMI] 30.0-30.9, adult; Z74.01 Bed confinement status; Z88.8 Allergy status to other drugs, medicaments and biological substances
CPT/HCPCS: 36415; 72170; 73501; 80053; 81001; 85014; 85018; 85025; 85610; 85730; 86850; 86900; 86901; 97110; 97116; 97163; 97530; A4565; G0378; J0131; J0171; J0330; J0690; J1100; J1885; J2250; J2405; J2704

== ENCOUNTER → 2022-01-13 | Outpatient (CLI) | payer MEDICARE, OTHER ==
[~2022-01-13] MED LIST changes: +CYANOCOBALAMIN (B-12) 1000 MCG/1 ML VIAL IM ONE; +CYANOCOBALAMIN (B-12) 1000 MCG/1 ML VIAL ONE; +POTASSIUM EFFERVESENT TAB 25 MEQ ONE; +POTASSIUM EFFERVESENT TAB 25 MEQ PO ONE
[2022-01-13 09:05] VITALS: BP 131/72
[2022-01-13 10:00] VITALS: BP 138/68
[2022-01-13 10:29] LABS: Eosinophils # (auto) 0.2 10 ^3/uL (0-0.8)
[2022-01-13 10:31] LABS: Basophils # (auto) 0.2 10 ^3/uL (0-0.2); Basophils % (auto) 1.1 % (0.0-2.0); Eosinophils % (auto) 1.4 % (0.0-7.0); Hematocrit 33.2 % (36.0-46.0); Hemoglobin 11.1 g/dL (12.2-16.2); Lymphocytes # (auto) 1.1 10 ^3/uL (0.4-5.4); Lymphocytes % (auto) 6.8 % (10.0-50.0); Mean Corpuscular Hemoglobin 30.9 pg (28.0-32.0); Mean Corpuscular Hgb Conc. 33.3 g/dL (32.0-36.0); Mean Corpuscular Volume 92.6 fL (80.0-100.0); Monocytes # (auto) 1.3 10 ^3/uL (0-1.3); Monocytes % (auto) 8.2 % (0.0-12.0); Neutrophils # (auto) 12.9 10 ^3/uL (1.6-8.6); Neutrophils % (auto) 82.5 % (37.0-80.0); Red Blood Cells 3.58 10^6/uL (4.0-5.20); Red Cell Distribution Width 14.8 % (11.8-14.3); White Blood Cell 15.6 10^3/uL (4.4-10.8)
[2022-01-13 12:03] LABS: Potassium 3.1 mmol/L (3.5-5.1)
== END | disposition home or self-care (01) ==
LOC: CHF HDHVI 08:58
PROVIDERS: ATTEND Internal Medicine Cardiovascular Disease
DX: E87.70 Fluid overload, unspecified (principal); I11.0 Hypertensive heart disease with heart failure; I50.9 Heart failure, unspecified; R60.0 Localized edema; J44.9 Chronic obstructive pulmonary disease, unspecified; E78.5 Hyperlipidemia, unspecified; M16.11 Unilateral primary osteoarthritis, right hip; G62.9 Polyneuropathy, unspecified; E66.9 Obesity, unspecified; Z68.30 Body mass index [BMI] 30.0-30.9, adult; Z74.01 Bed confinement status
CPT/HCPCS: 36415; 82565; 84132; 84520; 85025; 96372; G0463; J3420

== ENCOUNTER → 2022-01-20 | Outpatient (CLI) | payer MEDICARE, OTHER ==
[~2022-01-20] MED LIST changes: -CYANOCOBALAMIN (B-12) 1000 MCG/1 ML VIAL IM ONE; -CYANOCOBALAMIN (B-12) 1000 MCG/1 ML VIAL ONE; -POTASSIUM EFFERVESENT TAB 25 MEQ ONE; -POTASSIUM EFFERVESENT TAB 25 MEQ PO ONE
[2022-01-20 09:58] VITALS: BP 124/60
[2022-01-20 10:20] VITALS: BP 127/71
== END | disposition home or self-care (01) ==
LOC: CHF HDHVI 09:49
PROVIDERS: ATTEND Internal Medicine Cardiovascular Disease
DX: R22.43 Localized swelling, mass and lump, lower limb, bilateral (principal)
CPT/HCPCS: G0463

== ENCOUNTER → 2022-03-28 | Outpatient (CLI) | payer MEDICARE, OTHER ==
[~2022-03-28] MED LIST changes: +ASPI1TAB19 PO; +ATOR10TA52 PO; +POTA10TA32 PO
[2022-03-28 10:17] VITALS: BP 124/68
[2022-03-28 10:59] VITALS: BP 125/80
[2022-03-28 15:29] LABS: Basophils # (auto) 0.1 10 ^3/uL (0-0.2); Basophils % (auto) 1.1 % (0.0-2.0); Eosinophils # (auto) 0.4 10 ^3/uL (0-0.8); Eosinophils % (auto) 4.8 % (0.0-7.0); Hematocrit 35.5 % (36.0-46.0); Hemoglobin 11.9 g/dL (12.2-16.2); Lymphocytes # (auto) 1.3 10 ^3/uL (0.4-5.4); Lymphocytes % (auto) 14.4 % (10.0-50.0); Mean Corpuscular Hemoglobin 30.7 pg (28.0-32.0); Mean Corpuscular Hgb Conc. 33.4 g/dL (32.0-36.0); Monocytes # (auto) 0.6 10 ^3/uL (0-1.3); Monocytes % (auto) 6.7 % (0.0-12.0); Neutrophils # (auto) 6.4 10 ^3/uL (1.6-8.6); Red Blood Cells 3.86 10^6/uL (4.0-5.20); Red Cell Distribution Width 15.3 % (11.8-14.3); White Blood Cell 8.8 10^3/uL (4.4-10.8)
[2022-03-28 15:45] LABS: BUN/Creatinine Ratio 10.7; Calcium 9.3 mg/dL (8.5-10.1); Potassium 4.3 mmol/L (3.5-5.1)
[2022-03-28 15:52] LABS: INR 1.01 (0.9-1.15)
== END | disposition home or self-care (01) ==
LOC: Rad HDHVI 10:02
PROVIDERS: ATTEND Internal Medicine Cardiovascular Disease
DX: I70.0 Atherosclerosis of aorta (principal); I50.9 Heart failure, unspecified; I42.9 Cardiomyopathy, unspecified; I11.0 Hypertensive heart disease with heart failure; I27.21 Secondary pulmonary arterial hypertension; Z79.899 Other long term (current) drug therapy
CPT/HCPCS: 36415; 71046; 80048; 85025; 85610; 85730; 93005; G0463

== ENCOUNTER 2022-04-01 12:03 | Day surgery (SDC) | payer MEDICARE, OTHER ==
[~2022-04-01] VITALS: Ht 152.4 cm; Wt 65.3 kg
[~2022-04-01 12:03] MED LIST changes: -ASPI1TAB19 PO; -ATOR10TA52 PO; -POTA10TA32 PO
[2022-04-01] MEDS ORDERED: IODIXANOL 320MG/ML 100ML BTL IV ONE (14:12)
[2022-04-01] MEDS ORDERED: LIDOCAINE 2%HCL (LOCAL ANESTH.) INJ 10ml MDV ONE ×4 (14:12→14:30)
[2022-04-01] MEDS ORDERED: fentaNYL CITRATE 100 MCG/2 ML VL ONE (14:17)
[2022-04-01] MEDS ORDERED: ANGIOMAX 250 MG VIAL IV ONE (14:17)
[2022-04-01] MEDS ORDERED: MIDAZOLAM HCL 2MG/2ML 2ml VIAL (1mg/ml) ONE (14:18)
[2022-04-01] MEDS ORDERED: SODIUM CHL 0.9% 0 ML ONE (14:18)
[2022-04-01] MEDS ORDERED: POTA10TA32 PO (16:00)
[2022-04-01] MEDS ORDERED: ASPI1TAB19 PO (16:00)
[2022-04-01] MEDS ORDERED: ATOR10TA52 PO (16:00)
== END 2022-04-01 16:55 | disposition home or self-care (01) ==
LOC: CATH 12:03
PROVIDERS: ATTEND Internal Medicine Cardiovascular Disease
DX: R94.39 Abnormal result of other cardiovascular function study (principal); E78.5 Hyperlipidemia, unspecified; I11.0 Hypertensive heart disease with heart failure; I50.30 Unspecified diastolic (congestive) heart failure; J43.9 Emphysema, unspecified; Z20.822 Contact with and (suspected) exposure to COVID-19; Z87.891 Personal history of nicotine dependence; Z82.49 Family history of ischemic heart disease and other diseases of the circulatory system; Z80.8 Family history of malignant neoplasm of other organs or systems
CPT/HCPCS: 75736; 93460; C1751; C1760; C1894; J1644; J2001; J2250; J3010; Q9967; U0003; 99152

== ENCOUNTER → 2022-08-22 | Outpatient (CLI) | payer MEDICARE, OTHER ==
[~2022-08-22] MED LIST changes: +ASPI1TAB19 PO; -ASPI1TAB20 PO; +ATOR10TA52 PO; -ATOR20TA50 PO; -POTA10IN PO; +POTA10TA32 PO
[2022-08-22 09:15] LABS: Urine Bacteria NONE SEEN /hpf (None Seen); Urine Blood Negative /uL (Negative); Urine Specific Gravity 1.006 (1.001-1.035); Urine WBC 3 /hpf (0 - 5)
[2022-08-22 09:17] LABS: Basophils # (auto) 0.1 10 ^3/uL (0-0.2); Basophils % (auto) 0.9 % (0.0-2.0); Eosinophils # (auto) 0.7 10 ^3/uL (0-0.8); Eosinophils % (auto) 9.2 % (0.0-7.0); Hematocrit 36.3 % (36.0-46.0); Hemoglobin 12.5 g/dL (12.2-16.2); Lymphocytes # (auto) 1.8 10 ^3/uL (0.4-5.4); Lymphocytes % (auto) 24.7 % (10.0-50.0); Mean Corpuscular Hemoglobin 31.2 pg (28.0-32.0); Mean Corpuscular Hgb Conc. 34.5 g/dL (32.0-36.0); Mean Corpuscular Volume 90.6 fL (80.0-100.0); Monocytes # (auto) 0.7 10 ^3/uL (0-1.3); Monocytes % (auto) 10.2 % (0.0-12.0); Red Blood Cells 4.01 10^6/uL (4.0-5.20); Red Cell Distribution Width 14.8 % (11.8-14.3); White Blood Cell 7.2 10^3/uL (4.4-10.8)
[2022-08-22 09:58] LABS: Potassium 4.7 mmol/L (3.5-5.1)
[2022-08-22 10:08] LABS: Albumin 3.7 g/dL (3.4-5.0); BUN/Creatinine Ratio 14.3; Bilirubin, Total 0.6 mg/dL (0.2-1.0); Calcium 9.6 mg/dL (8.5-10.1); Total Protein 6.6 g/dL (6.4-8.2)
== END | disposition home or self-care (01) ==
LOC: LAB 08:52
PROVIDERS: ATTEND Internal Medicine
DX: I13.0 Hypertensive heart and chronic kidney disease with heart failure and stage 1 through stage 4 chronic kidney disease, or unspecified chronic kidney disease (principal); I50.32 Chronic diastolic (congestive) heart failure; N18.30 Chronic kidney disease, stage 3 unspecified; Z79.899 Other long term (current) drug therapy
CPT/HCPCS: 36415; 80053; 80061; 81001; 82306; 84439; 84443; 85025; 85652

== ENCOUNTER → 2023-09-01 | Outpatient (CLI) | payer MEDICARE, OTHER ==
[~2023-09-01] MED LIST changes: +GABA-1308 PO; -GABA100C9 PO; +POTA-228 PO; -POTA10TA32 PO
[2023-09-01 08:32] LABS: Hematocrit 37.2 % (36.0-46.0); Hemoglobin 12.3 g/dL (12.2-16.2); Mean Corpuscular Hgb Conc. 33.2 g/dL (32.0-36.0); Mean Corpuscular Volume 90.2 fL (80.0-100.0); Red Blood Cells 4.12 10^6/uL (4.0-5.20); Red Cell Distribution Width 14.9 % (11.8-14.3); White Blood Cell 6.9 10^3/uL (4.4-10.8)
[2023-09-01 08:38] LABS: Urine Bacteria FEW /hpf (None Seen); Urine Blood Negative /uL (Negative); Urine Clarity Clear (Clear); Urine Color Colorless (Yellow); Urine Protein, UAD Negative (Negative); Urine Specific Gravity 1.005 (1.001-1.035); Urine Urobilinogen Normal (Negative); Urine WBC 1 /hpf (0 - 5)
[2023-09-01 08:44] LABS: Band Neutrophils % (manual) 0; Basophils % (manual) 0 (0.0-2.0); Blast Cells 0; Metamyelocytes % 0; Myelocytes % 0; Promyelocytes % 0; Reactive Lymphocytes 0
[2023-09-01 08:54] LABS: Alanine Aminotransferase 13 U/L (7-40); Albumin 4.7 g/dL (3.2-4.8); Alkaline Phosphatase 90 U/L (46-116); Anion Gap 8 (5-15); Aspartate Aminotransferase 18 U/L (13-40); Blood Urea Nitrogen 9 mg/dL (9-23); Calcium 9.7 mg/dL (8.5-10.1); Carbon Dioxide 27 mmol/L (20-30); Chloride 106 mmol/L (98-107); Cholesterol 167 mg/dL (< 200); Glucose 94 mg/dL (74-106); HDL Cholesterol 64 mg/dL (40-59); LDL Cholesterol 84 mg/dL (< 100); Potassium 4.7 mmol/L (3.5-5.1); Sodium 141 mmol/L (136-145); Triglycerides 101 mg/dL (< 150)
[2023-09-01 08:55] LABS: Bilirubin, Total 0.6 mg/dL (0.2-1.0); Total Protein 6.8 g/dL (5.7-8.2)
[2023-09-01 09:21] LABS: Magnesium 1.8 mg/dL (1.6-2.6)
[2023-09-01 09:26] LABS: Eosinophils % (manual) 16 (0-7); Lymphocytes % (manual) 27 (10.0-50.0); Monocytes % (manual) 9 (0-12); Platelet Estimate Adequate; RBC Morphology Normal
[2023-09-01 09:29] LABS: Erythrocyte Sedimentation Rate 15 mm/hr (0-20)
== END | disposition home or self-care (01) ==
LOC: LAB 08:04
PROVIDERS: ATTEND Internal Medicine
DX: I10 Essential (primary) hypertension (principal); J45.909 Unspecified asthma, uncomplicated
CPT/HCPCS: 36415; 80053; 80061; 81001; 83735; 84439; 84443; 85007; 85027; 85652

== ENCOUNTER → 2023-12-18 | Outpatient (CLI) | payer MEDICARE, OTHER | END | disposition home or self-care (01) | LOC: LAB 10:41 | PROVIDERS: ATTEND Internal Medicine | DX: Z12.11 Encounter for screening for malignant neoplasm of colon (principal) | CPT/HCPCS: 82270 ==

== ENCOUNTER → 2024-09-01 | Outpatient (CLI) | payer MEDICARE, OTHER ==
[2024-09-01 07:45] LABS: Basophils # (auto) 0 10 ^3/uL (0-0.2); Basophils % (auto) 0.5 % (0.0-2.0); Eosinophils # (auto) 0.4 10 ^3/uL (0-0.8); Eosinophils % (auto) 6.1 % (0.0-7.0); Hematocrit 38.4 % (36.0-46.0); Hemoglobin 12.9 g/dL (12.2-16.2); Lymphocytes # (auto) 1.6 10 ^3/uL (0.4-5.4); Lymphocytes % (auto) 27.5 % (10.0-50.0); Mean Corpuscular Hemoglobin 30.6 pg (28.0-32.0); Mean Corpuscular Hgb Conc. 33.5 g/dL (32.0-36.0); Mean Corpuscular Volume 91.3 fL (80.0-100.0); Monocytes # (auto) 0.7 10 ^3/uL (0-1.3); Monocytes % (auto) 12.3 % (0.0-12.0); Neutrophils # (auto) 3.1 10 ^3/uL (1.6-8.6); Neutrophils % (auto) 53.6 % (37.0-80.0); Nucleated Red Blood Cells % 0.1 %; Platelet Count (auto) 316 10^3/uL (140-450); Red Cell Distribution Width 14.5 % (11.8-14.3); White Blood Cell 5.9 10^3/uL (4.4-10.8)
[2024-09-01 08:02] LABS: Alanine Aminotransferase 15 U/L (7-40); Albumin 4.6 g/dL (3.2-4.8); Alkaline Phosphatase 89 U/L (46-116); Anion Gap 4 (5-15); Aspartate Aminotransferase 12 U/L (13-40); BUN/Creatinine Ratio 18.1 (10.0-20.0); Blood Urea Nitrogen 15 mg/dL (9-23); Calcium 9.7 mg/dL (8.7-10.4); Carbon Dioxide 29 mmol/L (20-31); Chloride 107 mmol/L (98-107); Glucose 95 mg/dL (74-106); LDL Cholesterol 87 mg/dL (< 100); Sodium 140 mmol/L (136-145); Triglycerides 103 mg/dL (< 150)
[2024-09-01 08:03] LABS: Bilirubin, Total 0.6 mg/dL (0.2-1.0); Cholesterol 173 mg/dL (< 200); HDL Cholesterol 66 mg/dL (40-59); Total Protein 6.8 g/dL (5.7-8.2)
[2024-09-01 08:11] LABS: Urine Bacteria FEW /hpf (None Seen); Urine Blood Negative /uL (Negative); Urine Clarity Clear (Clear); Urine Color Colorless (Yellow); Urine Protein, UAD Negative (Negative); Urine Specific Gravity 1.005 (1.001-1.035); Urine Urobilinogen Normal (Negative); Urine WBC 1 /hpf (0 - 5)
[2024-09-01 08:55] LABS: Erythrocyte Sedimentation Rate 14 mm/hr (0-20)
[2024-09-01 09:09] LABS: Free T4 (Free Thyroxine) 1.1 ng/dL (0.89-1.76)
== END | disposition home or self-care (01) ==
LOC: LAB 07:14
PROVIDERS: ATTEND Internal Medicine
DX: I10 Essential (primary) hypertension (principal); M81.0 Age-related osteoporosis without current pathological fracture
CPT/HCPCS: 36415; 80053; 80061; 81001; 82043; 82306; 82607; 84439; 84443; 85025; 85652

== ENCOUNTER 2025-03-23 15:31 | Outpatient (CLI) | payer MEDICARE, OTHER ==
[2025-03-23 15:47] LABS: Basophils # (auto) 0 10 ^3/uL (0-0.2); Basophils % (auto) 0.2 % (0.0-2.0); Eosinophils # (auto) 0.3 10 ^3/uL (0-0.8); Eosinophils % (auto) 3.7 % (0.0-7.0); Hematocrit 37.1 % (36.0-46.0); Hemoglobin 12.4 g/dL (12.2-16.2); Lymphocytes # (auto) 2.4 10 ^3/uL (0.4-5.4); Lymphocytes % (auto) 31.9 % (10.0-50.0); Mean Corpuscular Hemoglobin 30.2 pg (28.0-32.0); Mean Corpuscular Hgb Conc. 33.5 g/dL (32.0-36.0); Mean Corpuscular Volume 90.1 fL (80.0-100.0); Monocytes # (auto) 0.9 10 ^3/uL (0-1.3); Monocytes % (auto) 11.7 % (0.0-12.0); Neutrophils % (auto) 52.5 % (37.0-80.0); Platelet Count (auto) 306 10^3/uL (140-450); Red Blood Cells 4.12 10^6/uL (4.0-5.20); Red Cell Distribution Width 14.9 % (11.8-14.3); White Blood Cell 7.7 10^3/uL (4.4-10.8)
[2025-03-23 15:59] LABS: Alanine Aminotransferase 16 U/L (7-40); Albumin 4.7 g/dL (3.2-4.8); Alkaline Phosphatase 90 U/L (46-116); Anion Gap 6 (5-15); Aspartate Aminotransferase 19 U/L (13-40); BUN/Creatinine Ratio 12.8 (10.0-20.0); Blood Urea Nitrogen 11 mg/dL (9-23); Carbon Dioxide 26 mmol/L (20-31); Chloride 106 mmol/L (98-107); Glucose 90 mg/dL (74-106); Potassium 4.3 mmol/L (3.5-5.1); Sodium 138 mmol/L (136-145); Total Protein 6.8 g/dL (5.7-8.2)
[2025-03-23 16:00] LABS: Bilirubin, Total 0.5 mg/dL (0.2-1.0)
[2025-03-23 16:17] LABS: Erythrocyte Sedimentation Rate 10 mm/hr (0-20)
== END 2025-03-23 17:00 | disposition home or self-care (01) ==
LOC: LAB 15:31
PROVIDERS: ATTEND Internal Medicine
DX: I10 Essential (primary) hypertension (principal)
CPT/HCPCS: 36415; 80053; 85025; 85652